=== PATIENT | female | born 1990 | race Caucasian/White ===

== ENCOUNTER 2018-05-16 01:42 | Emergency (ER) | payer OTHER ==
[~2018-05-16] VITALS: Ht 167.6 cm; Wt 63.5 kg
[~2018-05-16 01:42] MED LIST: FLAGYL500 MG PO
[2018-05-16] MEDS ORDERED: DOXYCYCLINE 10100 MG PO (02:06)
[2018-05-16 03:23] VITALS: BP 120/80
== END 2018-05-16 03:05 | disposition home or self-care (01) ==
LOC: M.ERS 01:42
DX: L03.116 Cellulitis of left lower limb (principal); L02.612 Cutaneous abscess of left foot; F17.210 Nicotine dependence, cigarettes, uncomplicated; Z88.0 Allergy status to penicillin; Z88.2 Allergy status to sulfonamides